=== PATIENT | male | born 1940 | race Caucasian/White ===

== ENCOUNTER 2017-02-26 13:50 | Observation (INO) | payer OTHER ==
[~2017-02-26] VITALS: Ht 177.8 cm; Wt 120.0 kg
[~2017-02-26 13:50] MED LIST: ADVAIR 250/501 DISK; CENTRAL VITE T1 EACH PO; COMBIGAN EYE DR10 ML; DIOVAN HCT 11 TABLET PO; DIOVAN HCT 3201 EAC1; ECOTRIN325 MG PO; OMEPRAZOLE40 M1 PO; SINGULAIR10 MG PO; Xanax PO; ZOCOR80 MG PO; celeXA PO
[2017-02-26 15:05] LABS: HEMATOCRIT 42.7 % (38.0-50.0); MCH 30.8 PG (29.0-34.0); MCHC 34.7 G/DL (30.0-36.0); MCV 88.8 FL (86-99); MEAN PLAT.VOLUME 10.3 uM^3 (9.0-12.4); PLATELET COUNT 199 K/uL (156-360); RBC DIS.WIDTH-CV 13.4 % (11.8-14.6); RBC DIS.WIDTH-SD 43.7 % (39-53); RED BLOOD COUNT 4.81 M/uL (4.00-5.50); WHITE BLOOD COUNT 5.8 K/uL (4.1-10.2)
[2017-02-26 15:10] LABS: INTER. NORMALIZED RATIO 1.1; PROTHROMBIN TIME 11.8 SEC (10.2-12.9)
[2017-02-26 15:16] LABS: CHLORIDE 106 mEq/L (99-109); SODIUM 143 mEq/L (136-147)
[2017-02-26 15:18] LABS: GLUCOSE 98 mg/dL (70-99)
[2017-02-26 15:20] LABS: ANION GAP 13 MEQ/L (2-14)
[2017-02-26 15:22] LABS: GFR ESTIMATE (CALCULATED) > 59 mL/min/
[2017-02-26 15:23] LABS: UREA NITROGEN (BUN) 19 mg/dL (9-23)
[2017-02-26 15:27] LABS: TROP-I INTERPRETATION NEGATIVE; TROPONIN-I < 0.01 ng/mL (0.0-0.30)
[2017-02-26] MEDS ORDERED: ULTRACET1 TABLET PO (16:16)
[2017-02-26] MEDS ORDERED: COREG6.25 M1 PO (16:16)
[2017-02-26 17:41] VITALS: BP 152/78
[2017-02-26 20:00] VITALS: BP 125/74
[2017-02-26 21:00] VITALS: BP 130/75
[2017-02-26 21:02] LABS: TROP-I INTERPRETATION NEGATIVE; TROPONIN-I < 0.01 ng/mL (0.0-0.30)
[2017-02-27 00:13] VITALS: BP 121/68
[2017-02-27 01:35] LABS: TROP-I INTERPRETATION NEGATIVE; TROPONIN-I < 0.01 ng/mL (0.0-0.30)
[2017-02-27 04:00] VITALS: BP 123/66
[2017-02-27 05:16] LABS: HEMATOCRIT 40.9 % (38.0-50.0); MCH 29.8 PG (29.0-34.0); MCHC 33.5 G/DL (30.0-36.0); MCV 88.9 FL (86-99); MEAN PLAT.VOLUME 10.3 uM^3 (9.0-12.4); PLATELET COUNT 177 K/uL (156-360); RBC DIS.WIDTH-CV 13.4 % (11.8-14.6); RBC DIS.WIDTH-SD 43.6 % (39-53); WHITE BLOOD COUNT 5.2 K/uL (4.1-10.2)
[2017-02-27 05:47] LABS: ANION GAP 9 MEQ/L (2-14); CHLORIDE 105 MEQ/L (99-109); GFR ESTIMATE (CALCULATED) > 59 mL/min/; GLUCOSE 92 mg/dL (70-99); POTASSIUM 3.6 MEQ/L (3.7-5.4); SAMPLE HEMOLYSIS CHECK 0; SAMPLE ICTERIC CHECK 0; SAMPLE LIPEMIA CHECK 0; SODIUM 143 MEQ/L (136-147); UREA NITROGEN (BUN) 19 mg/dL (9-23)
[2017-02-27 07:53] VITALS: BP 139/83
[2017-02-27 12:00] VITALS: BP 142/86
== END 2017-02-27 17:28 | disposition home or self-care (01) ==
LOC: EME 13:50 → EDOF 16:00 → 4EAST 16:00 → ENRESERV 16:13 → 4EAST 17:20
PROVIDERS: Emergency Medicine; Internal Medicine
DX: R00.1 Bradycardia, unspecified (principal); R42 Dizziness and giddiness; I10 Essential (primary) hypertension; E78.5 Hyperlipidemia, unspecified; E87.6 Hypokalemia; I25.10 Atherosclerotic heart disease of native coronary artery without angina pectoris; Z95.5 Presence of coronary angioplasty implant and graft; I49.3 Ventricular premature depolarization; G47.33 Obstructive sleep apnea (adult) (pediatric); E78.00 Pure hypercholesterolemia, unspecified; F41.9 Anxiety disorder, unspecified; K21.9 Gastro-esophageal reflux disease without esophagitis; J44.9 Chronic obstructive pulmonary disease, unspecified; Z87.891 Personal history of nicotine dependence; M19.90 Unspecified osteoarthritis, unspecified site
CPT/HCPCS: 71010; 80048; 84484; 85027; 85610; 85730; 93005; 99281; 99285; G0378; J0461; J1650